=== PATIENT | male | born 1945 | race Caucasian/White ===

== ENCOUNTER 2018-02-28 06:59 | Inpatient (IN) ==
[2018-02-28] MEDS ORDERED: 0.9 % SODIUM CHLORIDE 1,000 ML IV ONE ×2 (07:18→09:17)
[2018-02-28 08:14] LABS: Basophils # (Auto) 0 K/mcL (0.0-0.3); Basophils % (Auto) 0.4 % (0.0-2.0); Eosinophils # (Auto) 0.1 K/mcL (0.0-0.7); Eosinophils % (Auto) 1.9 % (0.0-7.0); Granulocytes % (Auto) 57.4 % (38.0-78.0); Lymphocytes # (Auto) 2.2 K/mcL (1.5-4.8); Lymphocytes % (Auto) 31.8 % (15.5-49.0); Mean Cell Volume 94.6 fL (80.0-100.0); Mean Corpuscular HGB Conc 34.1 g/dL (31.0-36.0); Mean Corpuscular Hemoglobin 32.2 pg (26.0-34.0); Monocytes # (Auto) 0.6 K/mcL (0.1-0.9); Monocytes % (Auto) 8.5 % (1.0-12.0); Platelet Count 159 K/mcL (140-440); RBC 4.19 M/mcL (4.50-5.90); Red Cell Distribution Width 13.4 % (11.5-14.5)
[2018-02-28 08:31] LABS: ALT/SGPT 19 U/l (0-40); Albumin 3.8 gm/dL (3.2-5.2); Albumin/Globulin Ratio 1.8 (1.0-2.3); Alkaline Phosphatase 55 U/L (39-117); Blood Urea Nitrogen 26 mg/dl (8-23)
[2018-02-28] MEDS ORDERED: LACTATED RINGERS 1,000 ML IV SCH ×2 (08:45→10:21)
[2018-02-28] MEDS ORDERED: PANTOPRAZOLE 40 MG VIAL IV ONE (08:55)
[2018-02-28] MEDS ORDERED: 0.9 % SODIUM CHLORIDE 250 ML IV SCH ×4 (09:00→12:07)
--- NOTE | 2018-02-28 09:20 | Emergency Department Note ---
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 Reports one episode of epigastric pain about a month ago with brief syncope, this lead to a normal nuclear cardiac test. upon arrival pt gave a small brown BM, followed by 2-3 more BMs of maroon and now letty bloody stool. Onset (ago): hour(s) Severity: moderate Severity scale (1-10): 2 Treatments Prior to Arrival: none - Related Data Home Medications Medication Instructions Recorded Confirmed R Lipoic Acid 600 mg PO BID 12/28/14 02/28/18 coenzyme Q10 100 mg capsule 100 mg PO BID cap 12/28/14 02/28/18 oxygen-air delivery systems device See Dose Instructions .ROUTE 12/28/14 .MEDSUPPLY aspirin 81 mg tablet,delayed 81 mg PO QDAY 09/10/16 02/28/18 release cholecalciferol (vitamin D3) 5,000 15,000 unit PO QDAY tab 09/17/17 02/28/18 unit tablet Previous Rx's Medication Instructions Recorded carvedilol 12.5 mg tablet 12.5 mg PO BID #180 tab 09/17/17 dutasteride 0.5 mg capsule 0.5 mg PO QDAY #90 cap 09/17/17 quinapril 40 mg tablet 40 mg PO QDAY #90 tab 09/17/17 Allergies Allergy/AdvReac Type Severity Reaction Status Date / Time Iodinated Contrast- Oral and Allergy Unknown Hives Verified 02/28/18 07:06 IV Dye [Iodinated Contrast Media - IV Dye] Cats Allergy Unknown Congested Uncoded 02/04/18 14:27 Review of Systems All systems ED: reviewed and negative except as stated. Constitutional: Reports: as per HPI. Denies: fever, chills, weakness Cardiovascular: Reports: chest pain, syncope (as per HPI, neg nuc stress test 1 month ago), other (has been exercising with for last few weeks and doing well overall). Denies: orthopnea Gastrointestinal: Reports: as per HPI Past Medical History - Past Medical History Medical history: Reports: CHF, coronary artery disease, hyperlipidemia, obesity Psychiatric history: Reports: no psych history Surgical history ED: Reports: bariatric surgery, cholecystectomy, coronary bypass (CABG) Family history: Reports: non-contributory - Social History smoking status: Never smoker Alcohol use: Reports: None Drug use: Reports: none Social History Narrative: daily coffee drinker Physical Exam Limitations: no limitations General appearance: alert, in no apparent distress, obese Eye: Absent: scleral icterus Chest: Present: normal inspection Respiratory: Present: normal lung sounds bilaterally Cardiovascular: Present: regular rate, normal rhythm, systolic murmur Abdominal: Present: soft, hyperactive bowel sounds. Absent: distention, tenderness, guarding, rebound, rigidity, ascites, bruit Rectal: Present: deferred, heme (+) stool, bloody stool Neurological: Present: alert, oriented X3, CN II-XII intact, normal gait Psychiatric: Present: normal affect, anxious Course Course Narrative: upon arrival pt NAD then multiple bloody BMs call to Dr Prajapati who agrees to admit and see today will make NPO and begin Protonix possible scope today Vital Signs Temperature 97.3 F 02/28/18 07:00 Pulse Rate 85 02/28/18 07:00 Respiratory Rate 20 02/28/18 07:00 Blood Pressure 150/87 02/28/18 07:00 Pulse Oximetry (%) 95 02/28/18 07:00 Temperature 97.3 F 02/28/18 07:00 Pulse Rate 78 02/28/18 09:01 Respiratory Rate 15 02/28/18 09:01 Blood Pressure 137/81 02/28/18 09:01 Pulse Oximetry (%) 98 02/28/18 09:01 Medical Decision Making - MDM Narrative Medical decision making narrative: concern for marginal ulcer in view of bypass history significant amount of bleeding based on presentation - Medical Records Medical records reviewed: Yes I reviewed the patient's medical records. - Lab Data Lab results reviewed: Yes I reviewed the patient's lab results. Result diagrams: 02/28/18 07:32 02/28/18 07:32 Lab Results 02/28/18 02/28/18 Range/Units 07:32 07:32 WBC 6.8 (4.5-11.0) K/mcL RBC 4.19 L (4.50-5.90) M/mcL Hgb 13.5 (13.5-16.5) g/dL Hct 39.7 L (41.0-55.0) % POC Hct 37.0 L (41.0-55.0) % MCV 94.6 (80.0-100.0) fL MCH 32.2 (26.0-34.0) pg MCHC 34.1 (31.0-36.0) g/dL RDW 13.4 (11.5-14.5) % Plt Count 159 (140-440) K/mcL MPV 7.9 (7.4-10.4) fL Gran % 57.4 (38.0-78.0) % Lymph % (Auto) 31.8 (15.5-49.0) % Bullock % (Auto) 8.5 (1.0-12.0) % Eos % (Auto) 1.9 (0.0-7.0) % Baso % (Auto) 0.4 (0.0-2.0) % Gran # 3.9 (1.8-8.0) K/mcL Lymph # (Auto) 2.2 (1.5-4.8) K/mcL Bullock # (Auto) 0.6 (0.1-0.9) K/mcL Eos # (Auto) 0.1 (0.0-0.7) K/mcL Baso # (Auto) 0 (0.0-0.3) K/mcL POC Sodium 141 (133-145) mmol/L Sodium 138 (133-145) mmol/L POC Potassium 4.3 (3.3-5.1) mmol/L Potassium 4.5 (3.3-5.1) mmol/L POC Chloride 106 (96-108) mmol/L Chloride 106 (96-108) mmol/L Carbon Dioxide 22 (22-30) mmol/L POC Total CO2 23 (22-30) mmol/L Anion Gap 10.0 (8-16) POC BUN 27 H (8-23) mg/dl BUN 26 H (8-23) mg/dl Creatinine 0.7 (0.7-1.2) mg/dl POC Creatinine 0.7 (0.7-1.2) mg/dl GFR Calculation 95 Glucose 115 H (70-105) mg/dL POC Glucose 113 H (70-105) mg/dL Calcium 8.7 (8.6-10.4) mg/dl POC WB Ioniz Calcium 1.18 (1.16-1.32) mmol/L Total Bilirubin 0.5 (0.0-1.0) mg/dL AST 14 (0-37) U/l ALT 19 (0-40) U/l Alkaline Phosphatase 55 (39-117) U/L Total Protein 5.9 (5.9-8.4) gm/dL Albumin 3.8 (3.2-5.2) gm/dL Globulin 2.1 L (2.2-3.7) gm/dL Albumin/Globulin Ratio 1.8 (1.0-2.3) Disposition Pt seen by [employer] SPECIALIST/PA only: No Clinical Impression: Upper gastrointestinal bleed Disposition: Xfer As Inpt ([facility]) Condition: Serious Referrals: Karri Castillo MD [Primary Care Provider] -
[2018-02-28] MEDS ORDERED: PANTOPRAZOLE 80 MG in 0.9 % SODIUM CHLORIDE 100 ML IV SCH ×2 (09:30→20:00)
[2018-02-28] MEDS: 0.9 % SODIUM CHLORIDE 10 ML SYRINGE IV SCH ×3 (10:00→21:02)
[2018-02-28] MEDS ORDERED: ONDANSETRON 4 MG/2 ML VIAL IV PRN ×3 (10:03→12:07)
--- NOTE | 2018-02-28 10:15 | General Surg History&Physical ---
History of Present Illness Patient information: Note initiated : 02/28/18 at 10:12 am Service Date, if different from initiated Date: [] Patient: Narinder Denise a 72 y/o M admitted on 02/28/18 for vomiting bright red blood. Chief Complaint: [] HPI: Mr. Denise is a 72 year old M admitted with upper GI bleed. The patient had onset of nausea followed by emesis of dark blood Earlier this morning. He was seen in the emergency room where he had had 3 episodes of rectal bleeding. He had some diaphoresis. His initial hematocrit is 39. The patient is status post gastric bypass in 2013. He has had some intermittent epigastric pain which resolved spontaneously. He had severe pain 2 February , which was associated with weakness and diaphoresis. This prompted him to have a stress test which was negative. The symptoms resolved and did not recur until this morning. He has a brisk bleed and is admitted for urgent upper endoscopy and treatment. Review of Systems All systems PM: reviewed and no additional remarkable complaints except as stated Past History Past medical history: Chronic obstructive sleep apnea. Hypertension. BPH. Left carotid bruit Past surgical history: Gastric bypass 2013. Coronary artery bypass grafting, 4 vessels [place] 1999. Right shoulder arthroscopy. Cholecystectomy Past family history: Colon cancer. 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 Occasional alcohol use. History of cannibidiol use Medications and Allergies Home Medications Medication Instructions Recorded Confirmed Type R Lipoic Acid 600 mg PO BID 12/28/14 02/28/18 History coenzyme Q10 100 mg capsule 100 mg PO BID cap 12/28/14 02/28/18 History oxygen-air delivery systems device See Dose Instructions .ROUTE 12/28/14 History .MEDSUPPLY aspirin 81 mg tablet,delayed 81 mg PO QDAY 09/10/16 02/28/18 History release carvedilol 12.5 mg tablet 12.5 mg PO BID #180 tab 09/17/17 02/28/18 Rx cholecalciferol (vitamin D3) 5,000 15,000 unit PO QDAY tab 09/17/17 02/28/18 History unit tablet dutasteride 0.5 mg capsule 0.5 mg PO QDAY #90 cap 09/17/17 02/28/18 Rx quinapril 40 mg tablet 40 mg PO QDAY #90 tab 09/17/17 02/28/18 Rx Allergies Allergy/AdvReac Type Severity Reaction Status Date / Time Iodinated Contrast- Oral and Allergy Unknown Hives Verified 02/28/18 07:06 IV Dye [Iodinated Contrast Media - IV Dye] Cats Allergy Unknown Congested Uncoded 02/04/18 14:27 Exam Temp Pulse Resp BP Pulse Ox 97.3 F 82 18 137/85 98 02/28/18 07:00 02/28/18 09:18 02/28/18 09:18 02/28/18 09:18 02/28/18 09:18 - General physical appearance well developed, well nourished, no distress, other (Mallie overweight) - Eyes PERRL, normal ocular movement - ENT normal pinna, normal nares, normal mucosa, no hearing loss, no congestion - Head Head exam IM: Present: atraumatic, normocephalic - Neck no masses, no bruits, trachea midline, no lymphadectomy, no venous distension - Cardiovascular Cardiovascular exam IM: Present: normal rate and rhythm, RRR, +S1, +S2. Absent : JVD, tachycardia - Respiratory normal expansion, normal respiratory effort, clear to percussion, clear to auscultation - Abdomen Abdomen: Present: soft, non tender, bowel sounds Hernia: Present: none - Genitourinary Present: normal penis with no external lesions - Integumentary Present: no rash, no growths, no abnormal pigmentation - Neurologic Present: normal coordination, normal sensation - Musculoskeletal Present: normal gait, normal posture - Psychiatric Present: oriented to time, oriented to person, oriented to place, speech is normal, memory intact Assessment and Plan (1) Upper gastrointestinal bleed Type and cross for 4 units of blood. Start pantoprazole drip. Urgent upper endoscopy with intervention is needed Status: Acute (2) Sleep apnea Status: Chronic Comment: 1998 - Patient on CPAP (3) Hypertension, essential Resume home meds when appropriate Status: Chronic (4) Gastric bypass status for obesity Status: Chronic Comment: check various nutrient factors. (5) CAD (coronary artery disease) Negative stress test 2 weeks ago. We'll continue home meds Status: Chronic Comment: Post CABG
[2018-02-28] MEDS ORDERED: MIDAZOLAM 5 MG/5 ML VIAL IV ONE (11:00)
[2018-02-28] MEDS ORDERED: fentaNYL 100 MCG/2 ML VIAL IV ONE (11:00)
[2018-02-28] MEDS ORDERED: ONDANSETRON 4 MG/2 ML VIAL IV ONE (11:00)
[2018-02-28] MEDS ORDERED: PROPOFOL 200 MG/20 ML VIAL IV ONE (11:00)
[2018-02-28] MEDS ORDERED: EPINEPHrine 1 MG/ML AMPUL IJ ONE ×2 (11:17→11:22)
--- NOTE | 2018-02-28 11:33 | Brief Operative Note ---
Date of procedure: 02/28/18 Pre-op diagnosis: upper gastointestinal bleeding Post-op diagnosis: other (large marginal ulcer with large fresh clot and exposed vessel) Procedure: UPPER ENDOSCOPY WITH CONTROL OF HEMORRHAGE BY EPINEPHRINE INFILTRATION AND APPLICATION OF 6 RESOLUTION CLIPS Grafts/Implants: No Anesthesia: other (GENERAL) Findings: LARGE MARGINAL ULCER WITH FRESH CLOT AND EXPOSED VESSEL Complications: none Surgeon: Chelsey Prajapati Specimens Removed/Pathology: none sent Condition: stable Disposition: ICU
[2018-02-28] MEDS: SUCRALFATE 1 GM/10 ML ORAL.SUSP PO SCH ×2 (12:47→17:36)
[2018-02-28] MEDS ORDERED: 0.9 % SODIUM CHLORIDE 10 ML SYRINGE IV SCH (14:00)
[2018-02-28] MEDS: LACTATED RINGERS 1,000 ML IV SCH (15:45)
[2018-02-28] MEDS ORDERED: PANTOPRAZOLE 40 MG VIAL IV SCH (17:00)
[2018-02-28] MEDS: CARVEDILOL 12.5 MG TABLET PO SCH (17:36)
[2018-02-28 18:14] LABS: Basophils # (Auto) 0 K/mcL (0.0-0.3); Basophils % (Auto) 0.3 % (0.0-2.0); Eosinophils # (Auto) 0 K/mcL (0.0-0.7); Eosinophils % (Auto) 0 % (0.0-7.0); Lymphocytes # (Auto) 1.4 K/mcL (1.5-4.8); Lymphocytes % (Auto) 11.1 % (15.5-49.0); Mean Cell Volume 93.9 fL (80.0-100.0); Mean Corpuscular HGB Conc 34.1 g/dL (31.0-36.0); Mean Corpuscular Hemoglobin 32.1 pg (26.0-34.0); Monocytes # (Auto) 0.6 K/mcL (0.1-0.9); Monocytes % (Auto) 4.6 % (1.0-12.0); Platelet Count 154 K/mcL (140-440); RBC 3.93 M/mcL (4.50-5.90); Red Cell Distribution Width 13.4 % (11.5-14.5)
[2018-02-28] MEDS: PANTOPRAZOLE 80 MG in 0.9 % SODIUM CHLORIDE 100 ML IV SCH (22:08)
[2018-02-28] MEDS ORDERED: ACETAMINOPHEN 1,000 MG/100 ML BOTTLE IV PRN (23:59)
[2018-02-28] MEDS ORDERED: ALPRAZolam 0.5 MG TABLET PO PRN (23:59)
[2018-03-01] MEDS: SUCRALFATE 1 GM/10 ML ORAL.SUSP PO SCH ×4 (00:06→18:03)
[2018-03-01] MEDS: LACTATED RINGERS 1,000 ML IV SCH ×2 (02:36→11:48)
[2018-03-01] MEDS: 0.9 % SODIUM CHLORIDE 10 ML SYRINGE IV SCH ×4 (05:42→21:26)
[2018-03-01 06:38] LABS: Basophils # (Auto) 0 K/mcL (0.0-0.3); Basophils % (Auto) 0.3 % (0.0-2.0); Eosinophils # (Auto) 0.1 K/mcL (0.0-0.7); Eosinophils % (Auto) 0.5 % (0.0-7.0); Granulocytes % (Auto) 70.1 % (38.0-78.0); Lymphocytes # (Auto) 2.6 K/mcL (1.5-4.8); Lymphocytes % (Auto) 22.5 % (15.5-49.0); Mean Cell Volume 94.5 fL (80.0-100.0); Mean Corpuscular HGB Conc 34.1 g/dL (31.0-36.0); Mean Corpuscular Hemoglobin 32.2 pg (26.0-34.0); Monocytes # (Auto) 0.8 K/mcL (0.1-0.9); Monocytes % (Auto) 6.6 % (1.0-12.0); Platelet Count 115 K/mcL (140-440); RBC 3.11 M/mcL (4.50-5.90); Red Cell Distribution Width 13.6 % (11.5-14.5)
[2018-03-01] MEDS: PANTOPRAZOLE 80 MG in 0.9 % SODIUM CHLORIDE 100 ML IV SCH ×2 (06:54→21:00)
[2018-03-01 07:17] LABS: ALT/SGPT 14 U/l (0-40); Albumin 2.9 gm/dL (3.2-5.2); Albumin/Globulin Ratio 2.2 (1.0-2.3); Alkaline Phosphatase 41 U/L (39-117); Bilirubin,Direct < 0.2 mg/dL (0.0-0.3); Blood Urea Nitrogen 19 mg/dl (8-23); Gamma Glutamyl Transpeptidase 7 U/L (8-61)
[2018-03-01] MEDS: CARVEDILOL 12.5 MG TABLET PO SCH ×2 (08:42→18:03)
--- NOTE | 2018-03-01 09:31 | Operative Note ---
DATE OF OPERATION: 02/28/2018 PREOPERATIVE DIAGNOSIS: Upper gastrointestinal bleeding. POSTOPERATIVE DIAGNOSES: Large marginal ulcer with fresh clot and exposed vessel. PROCEDURE: Upper endoscopy with control of hemorrhage by epinephrine infiltration and application of 6 resolution clips. SURGEON: Chelsey Prajapati MD FINDINGS: Large marginal ulcer with fresh clot and exposed vessel. DESCRIPTION OF PROCEDURE: Under general anesthesia, the patient was turned to the left lateral decubitus position. A time-out procedure was carried out as per protocol. The endoscope introduced through the bite block into the retropharynx into the esophagus. The esophagus was normal down to the GE junction. There was a small amount of fresh blood in the small gastric pouch. At the gastrojejunal anastomosis there was a large ulcer with fresh clot. The ulcer bed was infiltrated circumferentially with epinephrine 1:100,000 directly into the margin of the ulcer. The clot did not enlarge. Next, 4 resolution clips were placed directly across the ulcer bed encompassing the gastric as well as the jejunum mucosa. This closed this area. The clot was then removed. There was an exposed vessel in the base of the residual of the ulcer that was exposed. This was controlled with epinephrine followed by 2 more resolution clips placed side by side. This totally covered the exposed ulcer bed. Another mg of epinephrine was then infused in 5 separate aliquots without difficulty. There was good blanching around the ulcer. The distal jejunal limb appeared to be unremarkable. There was no old blood in the distal limb. The patient tolerated the procedure well. The scope was removed. He was awakened and transferred back to the ICU in satisfactory condition. LCS:naveed Job ID: [id number] Doc ID: [id number] Chelsey Prajapati M.D.
--- NOTE | 2018-03-01 14:18 | General Surgery Progress Note ---
Subjective Patient reports: feels better, tolerating liquids well, flatus, bowel movement, afebrile Narrative: Note initiated : 03/01/18 at 2:18 pm Service Date, if different from initiated Date: [] Patient: Narinder Denise 72 y/o M admitted on 02/28/18 for Vomiting Bright Red Blood/Upper GI Bleed. Chief Complaint: [Patient is doing well. He has not had any rectal bleeding since last evening. His hemoglobin has remained stable. He denies any abdominal pain. He is tolerating liquid diet without difficulty. He does not have tachycardia or hypotension.] Objective Temp Pulse Resp BP Pulse Ox 98.6 F 70 16 124/70 99 03/01/18 12:01 03/01/18 12:01 03/01/18 12:01 03/01/18 12:01 03/01/18 12:01 - Additional Data Intake & Output - Last 24 hours: Intake & Output 02/27/18 02/28/18 03/01/18 03/02/18 05:59 05:59 05:59 05:59 Intake Total 4433 / 4433 1235 / 1235 Output Total 2026 / 2026 425 / 425 Balance 2406 / 2406 810 / 810 Weight 216 lb 3 oz 216 lb 3 oz - General physical appearance well developed, well nourished, no distress - Eyes PERRL, normal ocular movement - ENT normal pinna, normal nares, normal mucosa, no hearing loss, no congestion - Neck no masses, no bruits, trachea midline, no venous distension - Respiratory normal expansion, normal respiratory effort, clear to auscultation - Cardiovascular Cardiovascular exam: Present: normal rate and rhythm, RRR, +S1, +S2, systolic murmur (grade 2 systolic murmur). Absent: irregular rhythm, JVD, tachycardia - Abdomen soft, non tender, bowel sounds (abdomen is nondistended; he has good active bowel sounds; no tenderness noted) - Integumentary no rash, no growths, no abnormal pigmentation - Neurologic normal coordination, normal sensation - Musculoskeletal normal gait, normal posture - Psychiatric oriented to time, oriented to person, oriented to place, speech is normal, memory intact - Labs 03/01/18 03:40 03/01/18 03:40 Diabetes panel 03/01/18 Range/Units 03:40 Sodium 139 (133-145) mmol/L Potassium 4.0 (3.3-5.1) mmol/L Chloride 106 (96-108) mmol/L Carbon Dioxide 22 (22-30) mmol/L BUN 19 (8-23) mg/dl Creatinine 0.6 L (0.7-1.2) mg/dl Glucose 82 (70-105) mg/dL Calcium 7.8 L (8.6-10.4) mg/dl AST 11 (0-37) U/l ALT 14 (0-40) U/l Alkaline Phosphatase 41 (39-117) U/L Total Protein 4.2 L (5.9-8.4) gm/dL Albumin 2.9 L (3.2-5.2) gm/dL Triglycerides 94 (<150) mg/dl Calcium panel 03/01/18 Range/Units 03:40 Calcium 7.8 L (8.6-10.4) mg/dl Phosphorus 2.5 L (2.7-4.5) mg/dL Albumin 2.9 L (3.2-5.2) gm/dL Pituitary panel 03/01/18 Range/Units 03:40 Sodium 139 (133-145) mmol/L Potassium 4.0 (3.3-5.1) mmol/L Chloride 106 (96-108) mmol/L Carbon Dioxide 22 (22-30) mmol/L BUN 19 (8-23) mg/dl Creatinine 0.6 L (0.7-1.2) mg/dl Glucose 82 (70-105) mg/dL Calcium 7.8 L (8.6-10.4) mg/dl Adrenal panel 03/01/18 Range/Units 03:40 Sodium 139 (133-145) mmol/L Potassium 4.0 (3.3-5.1) mmol/L Chloride 106 (96-108) mmol/L Carbon Dioxide 22 (22-30) mmol/L BUN 19 (8-23) mg/dl Creatinine 0.6 L (0.7-1.2) mg/dl Glucose 82 (70-105) mg/dL Calcium 7.8 L (8.6-10.4) mg/dl Total Bilirubin 0.4 (0.0-1.0) mg/dL AST 11 (0-37) U/l ALT 14 (0-40) U/l Alkaline Phosphatase 41 (39-117) U/L Total Protein 4.2 L (5.9-8.4) gm/dL Albumin 2.9 L (3.2-5.2) gm/dL Assessment and Plan (1) Upper gastrointestinal bleed Status: Acute Assessment and plan: No evidence of ongoing bleeding; hemoglobin is stable. We'll transfer to regular floor and start soft diet. Switch to oral medications Current Visit: Yes (2) Sleep apnea Problem details: 1998 - Patient on CPAP Status: Chronic Current Visit: No (3) Hypertension, essential Status: Chronic Current Visit: No (4) Gastric bypass status for obesity Problem details: check various nutrient factors. Status: Chronic Current Visit: No (5) CAD (coronary artery disease) Problem details: Post CABG Status: Chronic Current Visit: No - Time Spent With Patient Total time spent is greater than 50% in coordination of care (as documented) at patient's floor/unit and/or counseling patient:
[2018-03-01] MEDS ORDERED: ONDANSETRON 4 MG/2 ML VIAL IV PRN (14:32)
[2018-03-01] MEDS ORDERED: ALPRAZolam 0.5 MG TABLET PO PRN (14:32)
[2018-03-01] MEDS ORDERED: ACETAMINOPHEN 1,000 MG/100 ML BOTTLE IV PRN (14:32)
[2018-03-01] MEDS ORDERED: HYDROcodone/APAP 5/325MG TABLET PO PRN (14:32)
[2018-03-01] MEDS: PANTOPRAZOLE 40 MG TABLET PO SCH (18:03)
[2018-03-01] MEDS ORDERED: 0.9 % SODIUM CHLORIDE 250 ML IV SCH (18:30)
[2018-03-02] MEDS: SUCRALFATE 1 GM/10 ML ORAL.SUSP PO SCH ×6 (00:26→23:09)
[2018-03-02] MEDS: 0.9 % SODIUM CHLORIDE 10 ML SYRINGE IV SCH ×4 (05:05→22:04)
[2018-03-02 05:11] LABS: Basophils # (Auto) 0 K/mcL (0.0-0.3); Basophils % (Auto) 0.5 % (0.0-2.0); Eosinophils # (Auto) 0.1 K/mcL (0.0-0.7); Eosinophils % (Auto) 1.3 % (0.0-7.0); Granulocytes % (Auto) 59.1 % (38.0-78.0); Lymphocytes # (Auto) 2.1 K/mcL (1.5-4.8); Lymphocytes % (Auto) 31.3 % (15.5-49.0); Mean Corpuscular Hemoglobin 31.6 pg (26.0-34.0); Monocytes # (Auto) 0.5 K/mcL (0.1-0.9); Monocytes % (Auto) 7.8 % (1.0-12.0); Platelet Count 97 K/mcL (140-440); Red Cell Distribution Width 13.3 % (11.5-14.5)
[2018-03-02] MEDS: PANTOPRAZOLE 80 MG in 0.9 % SODIUM CHLORIDE 100 ML IV SCH (05:25)
[2018-03-02 05:40] LABS: ALT/SGPT 12 U/l (0-40); Albumin 2.9 gm/dL (3.2-5.2); Albumin/Globulin Ratio 2.2 (1.0-2.3); Alkaline Phosphatase 43 U/L (39-117); Bilirubin,Direct < 0.2 mg/dL (0.0-0.3); Blood Urea Nitrogen 14 mg/dl (8-23); Gamma Glutamyl Transpeptidase 8 U/L (8-61); Uric Acid 5.3 mg/dL (2.5-8.0)
[2018-03-02] MEDS: PANTOPRAZOLE 40 MG TABLET PO SCH ×2 (07:51→17:11)
[2018-03-02] MEDS: LISINOPRIL 20 MG TABLET PO SCH (08:59)
[2018-03-02] MEDS: CARVEDILOL 12.5 MG TABLET PO SCH ×2 (08:59→17:41)
[2018-03-02] MEDS: DUTASTERIDE 0.5 MG CAPSULE PO SCH (09:00)
[2018-03-02] MEDS ORDERED: QUINAPRIL HCL 40 MG PO SCH (09:00)
[2018-03-02] MEDS ORDERED: MAGNESIUM SULFATE 32.48 MEQ in DEXTROSE 5% IN WATER 50 ML IV ONE (14:44)
--- NOTE | 2018-03-02 14:47 | General Surgery Progress Note ---
Subjective Patient reports: feels better, tolerating liquids well, flatus, bowel movement, afebrile Narrative: Note initiated : 03/02/18 at 2:45 pm Service Date, if different from initiated Date: [] Patient: Narinder Denise 72 y/o M admitted on 02/28/18 for Vomiting Bright Red Blood/Upper GI Bleed. Chief Complaint: [patient is doing well. He has had some dark bloody stools but his hemoglobin has actually increased to 11.5. The blood loss is extremely dark and is mixed with stool, suggesting that it is old and not fresh bleeding. This is supported by his increase in hemoglobin. He denies nausea or abdominal pain.] Objective Temp Pulse Resp BP Pulse Ox 98.6 F 74 18 114/54 97 03/02/18 12:00 03/02/18 12:00 03/02/18 12:00 03/02/18 12:00 03/02/18 12:00 - Additional Data Intake & Output - Last 24 hours: Intake & Output 02/28/18 03/01/18 03/02/18 03/03/18 05:59 05:59 05:59 05:59 Intake Total 4433 / 4433 2084 / 2084 280 / 280 Output Total 2026 / 2026 775 / 775 925 / 925 Balance 2406 / 2406 1309 / 1309 -645 / -645 Weight 216 lb 3 oz 216 lb 1.6 oz - General physical appearance well developed, well nourished, no distress - Eyes PERRL, normal ocular movement - ENT normal pinna, normal nares, normal mucosa, no hearing loss, no congestion - Neck no masses, no bruits, trachea midline, no venous distension - Respiratory normal expansion, normal respiratory effort, clear to auscultation - Cardiovascular Cardiovascular exam: Present: normal rate and rhythm, RRR, +S1, +S2, systolic murmur (grade 2 systolic murmur). Absent: JVD, tachycardia - Abdomen non tender, bowel sounds (present), surgical scars (none), masses (. Abdomen is soft and nondistended..... He has good active bowel sounds. There is no tenderness) - Integumentary no rash, no growths, no abnormal pigmentation - Neurologic normal coordination, normal sensation - Musculoskeletal normal gait, normal posture - Psychiatric oriented to time, oriented to person, oriented to place, speech is normal, memory intact - Labs 03/02/18 12:40 03/02/18 03:25 Diabetes panel 03/02/18 Range/Units 03:25 Sodium 141 (133-145) mmol/L Potassium 3.8 (3.3-5.1) mmol/L Chloride 107 (96-108) mmol/L Carbon Dioxide 24 (22-30) mmol/L BUN 14 (8-23) mg/dl Creatinine 0.7 (0.7-1.2) mg/dl Glucose 75 (70-105) mg/dL Calcium 8.0 L (8.6-10.4) mg/dl AST 10 (0-37) U/l ALT 12 (0-40) U/l Alkaline Phosphatase 43 (39-117) U/L Total Protein 4.2 L (5.9-8.4) gm/dL Albumin 2.9 L (3.2-5.2) gm/dL Triglycerides 81 (<150) mg/dl Calcium panel 03/02/18 Range/Units 03:25 Calcium 8.0 L (8.6-10.4) mg/dl Phosphorus 2.4 L (2.7-4.5) mg/dL Albumin 2.9 L (3.2-5.2) gm/dL Pituitary panel 03/02/18 Range/Units 03:25 Sodium 141 (133-145) mmol/L Potassium 3.8 (3.3-5.1) mmol/L Chloride 107 (96-108) mmol/L Carbon Dioxide 24 (22-30) mmol/L BUN 14 (8-23) mg/dl Creatinine 0.7 (0.7-1.2) mg/dl Glucose 75 (70-105) mg/dL Calcium 8.0 L (8.6-10.4) mg/dl Adrenal panel 03/02/18 Range/Units 03:25 Sodium 141 (133-145) mmol/L Potassium 3.8 (3.3-5.1) mmol/L Chloride 107 (96-108) mmol/L Carbon Dioxide 24 (22-30) mmol/L BUN 14 (8-23) mg/dl Creatinine 0.7 (0.7-1.2) mg/dl Glucose 75 (70-105) mg/dL Calcium 8.0 L (8.6-10.4) mg/dl Total Bilirubin 0.4 (0.0-1.0) mg/dL AST 10 (0-37) U/l ALT 12 (0-40) U/l Alkaline Phosphatase 43 (39-117) U/L Total Protein 4.2 L (5.9-8.4) gm/dL Albumin 2.9 L (3.2-5.2) gm/dL Assessment and Plan (1) Upper gastrointestinal bleed Status: Acute Assessment and plan: No evidence of ongoing bleeding; hemoglobin is stable. Current Visit: Yes (2) Sleep apnea Problem details: 1999 - Patient on CPAP Status: Chronic Current Visit: No (3) Hypertension, essential Status: Chronic Current Visit: No (4) Gastric bypass status for obesity Problem details: check various nutrient factors. Status: Chronic Current Visit: No (5) CAD (coronary artery disease) Problem details: Post CABG Status: Chronic Current Visit: No - Time Spent With Patient Total time spent is greater than 50% in coordination of care (as documented) at patient's floor/unit and/or counseling patient:
[2018-03-02] MEDS: MAGNESIUM SULFATE 2 GM/50 ML BAG IV SCH ×2 (15:06→16:02)
[2018-03-03] MEDS: SUCRALFATE 1 GM/10 ML ORAL.SUSP PO SCH ×4 (05:45→23:30)
[2018-03-03] MEDS: 0.9 % SODIUM CHLORIDE 10 ML SYRINGE IV SCH ×3 (05:46→21:12)
[2018-03-03 06:12] LABS: Basophils # (Auto) 0 K/mcL (0.0-0.3); Basophils % (Auto) 0.4 % (0.0-2.0); Eosinophils # (Auto) 0.1 K/mcL (0.0-0.7); Eosinophils % (Auto) 2.3 % (0.0-7.0); Granulocytes % (Auto) 53.6 % (38.0-78.0); Lymphocytes # (Auto) 1.8 K/mcL (1.5-4.8); Lymphocytes % (Auto) 35.1 % (15.5-49.0); Mean Cell Volume 94.9 fL (80.0-100.0); Mean Corpuscular HGB Conc 33.4 g/dL (31.0-36.0); Mean Corpuscular Hemoglobin 31.7 pg (26.0-34.0); Monocytes # (Auto) 0.4 K/mcL (0.1-0.9); Monocytes % (Auto) 8.6 % (1.0-12.0); Platelet Count 107 K/mcL (140-440); RBC 3.04 M/mcL (4.50-5.90); Red Cell Distribution Width 13.9 % (11.5-14.5)
[2018-03-03] MEDS ORDERED: POTASSIUM PHOSPHATE 40 MEQ in DEXTROSE 5% IN WATER 500 ML IV ONE (07:26)
[2018-03-03] MEDS: CARVEDILOL 12.5 MG TABLET PO SCH ×2 (08:13→17:00)
[2018-03-03] MEDS: DUTASTERIDE 0.5 MG CAPSULE PO SCH (08:14)
[2018-03-03] MEDS: LISINOPRIL 20 MG TABLET PO SCH (08:14)
[2018-03-03] MEDS: PANTOPRAZOLE 40 MG TABLET PO SCH ×2 (08:14→17:04)
--- NOTE | 2018-03-03 17:45 | General Surgery Progress Note ---
Subjective Patient reports: feels better, tolerating liquids well, flatus, bowel movement, blood in stool, afebrile Narrative: Note initiated : 03/03/18 at 5:43 pm Service Date, if different from initiated Date: [] Patient: Narinder Denise 72 y/o M admitted on 02/28/18 for Vomiting Bright Red Blood/Upper GI Bleed. Chief Complaint: [patient is stable, though he did have a bloody bowel movement earlier during the day. His morning hemoglobin was 28.9. He has no discomfort. Discussed with patient the need to proceed with repeat upper endoscopy and it will be done later today.] Objective Temp Pulse Resp BP Pulse Ox 98.7 F 62 16 146/72 98 03/03/18 16:00 03/03/18 16:00 03/03/18 16:00 03/03/18 16:00 03/03/18 16:00 - Additional Data Intake & Output - Last 24 hours: Intake & Output 03/01/18 03/02/18 03/03/18 03/04/18 05:59 05:59 05:59 05:59 Intake Total 4433 / 4433 2083 / 2083 1077 / 8741 283.8997 / 749.0909 Output Total 2026 / 2026 775 / 775 2725 / 2725 1974 / 1974 Balance 2406 / 2406 1309 / 1309 -1648 / -1648 -1225.9091 / -1225.9091 Weight 216 lb 3 oz 216 lb 1.6 oz 217 lb - General physical appearance well developed, well nourished, no distress - Eyes PERRL, normal ocular movement - ENT normal pinna, normal nares, normal mucosa, no hearing loss, no congestion - Neck no masses, no bruits, trachea midline, no lymphadectomy, no venous distension - Respiratory normal expansion, normal respiratory effort, clear to auscultation - Cardiovascular Cardiovascular exam: Present: normal rate and rhythm, +S2. Absent: JVD, tachycardia - Abdomen non tender, bowel sounds (present), surgical scars (none), masses (none) - Integumentary no rash, no growths, no abnormal pigmentation - Neurologic normal coordination, normal sensation - Musculoskeletal normal gait, normal posture - Psychiatric oriented to time, oriented to person, oriented to place, speech is normal, memory intact - Labs 03/03/18 04:54 03/02/18 03:25 Assessment and Plan (1) Upper gastrointestinal bleed Status: Acute Assessment and plan: Repeat rectal bleeding to be investigated by upper endoscopy Current Visit: Yes (2) Sleep apnea Problem details: 1998 - Patient on CPAP Status: Chronic Current Visit: No (3) Hypertension, essential Status: Chronic Current Visit: No (4) Gastric bypass status for obesity Problem details: check various nutrient factors. Status: Chronic Current Visit: No (5) CAD (coronary artery disease) Problem details: Post CABG Status: Chronic Current Visit: No - Time Spent With Patient Total time spent is greater than 50% in coordination of care (as documented) at patient's floor/unit and/or counseling patient:
[2018-03-03] MEDS ORDERED: GLYCOPYRROLATE 0.2 MG/ML VIAL IV ONE (18:15)
[2018-03-03] MEDS ORDERED: ONDANSETRON 4 MG/2 ML VIAL IV ONE (18:15)
[2018-03-03] MEDS ORDERED: PROPOFOL 200 MG/20 ML VIAL IV ONE (18:15)
[2018-03-03] MEDS ORDERED: LIDOCAINE HCL/PF 100 MG/5 ML SYRINGE IV ONE (18:15)
[2018-03-03] MEDS ORDERED: KETAMINE 100 MG/ML ML IV ONE (18:15)
[2018-03-03] MEDS ORDERED: MIDAZOLAM 2 MG/2 ML VIAL IV ONE (18:15)
--- NOTE | 2018-03-03 18:25 | Brief Operative Note ---
Date of procedure: 03/03/18 Pre-op diagnosis: upper gi bleeding Post-op diagnosis: other (marginal ulcer without bleeding) Procedure: upper endoscopy Grafts/Implants: No Anesthesia: MAC Findings: healing marginal ulcer without bleeding; no blood noted in distal jejunal limb Complications: none Surgeon: Chelsey Prajapati Condition: stable Disposition: same day
[2018-03-03] MEDS ORDERED: HYDROcodone/APAP 5/325MG TABLET PO PRN (18:47)
[2018-03-03] MEDS ORDERED: ACETAMINOPHEN 1,000 MG/100 ML BOTTLE IV PRN (18:47)
[2018-03-03] MEDS ORDERED: ALPRAZolam 0.5 MG TABLET PO PRN (18:47)
[2018-03-03] MEDS ORDERED: ONDANSETRON 4 MG/2 ML VIAL IV PRN (18:47)
[2018-03-03] MEDS ORDERED: PANTOPRAZOLE 40 MG TABLET PO ONE (19:01)
[2018-03-03] MEDS ORDERED: PANTOPRAZOLE 40 MG TABLET ONE (19:11)
[2018-03-04] MEDS: SUCRALFATE 1 GM/10 ML ORAL.SUSP PO SCH ×2 (05:55→12:58)
[2018-03-04] MEDS: 0.9 % SODIUM CHLORIDE 10 ML SYRINGE IV SCH ×2 (05:55→12:58)
[2018-03-04 06:27] LABS: Basophils # (Auto) 0 K/mcL (0.0-0.3); Basophils % (Auto) 0.3 % (0.0-2.0); Eosinophils # (Auto) 0.1 K/mcL (0.0-0.7); Eosinophils % (Auto) 2.7 % (0.0-7.0); Lymphocytes # (Auto) 1.8 K/mcL (1.5-4.8); Lymphocytes % (Auto) 34.8 % (15.5-49.0); Mean Cell Volume 94.3 fL (80.0-100.0); Mean Corpuscular Hemoglobin 32.1 pg (26.0-34.0); Monocytes # (Auto) 0.4 K/mcL (0.1-0.9); Monocytes % (Auto) 8.2 % (1.0-12.0); Platelet Count 121 K/mcL (140-440); RBC 3.08 M/mcL (4.50-5.90); Red Cell Distribution Width 13.6 % (11.5-14.5)
[2018-03-04] MEDS ORDERED: PANTOPRAZOLE 40 MG TABLET PO SCH (07:30)
[2018-03-04] MEDS ORDERED: CARVEDILOL 12.5 MG TABLET PO SCH (08:00)
[2018-03-04] MEDS ORDERED: LISINOPRIL 20 MG TABLET PO SCH (09:00)
[2018-03-04] MEDS ORDERED: DUTASTERIDE 0.5 MG CAPSULE PO SCH (09:00)
--- NOTE | 2018-03-04 13:01 | Discharge Summary ---
Providers - Providers Patient information: Note initiated : 03/04/18 at 12:59 pm Service Date, if different from initiated Date: [] Patient: Narinder Deinse 72 y/o M admitted on 02/28/18 for Vomiting Bright Red Blood/Upper GI Bleed. Chief Complaint: [] Date of admission: 02/28/18 Discharge date: 03/04/18 Attending physician: Chelsey Prajapati Hospitalization Hospital course: 72-year-old male who presented on February with a history of hematemesis followed by multiple episodes of hematochezia. He also had some weakness and diaphoresis. Patient was felt to have a major upper GI bleeding. He was admitted and started on pantoprazole. His initial hemoglobin was 12.6 but dropped to 9.8. He had more bleeding and underwent urgent upper endoscopy, where he was found to have a marginal ulcer at the gastrojejunal anastomosis with fresh clot and an exposed the vessel. The bleeding was controlled by serial epinephrine injections followed by application of 6 resolution clips which totally close the ulcer and the vessel. The patient received 2 units of packed red cells. Since that time, he has been stable, but he started having more bloody stools and had fluctuations in hemoglobin level. Because of this, repeat endoscopy was done on February which showed no evidence of bleeding with the resolution clips still adequately position with evidence of healing. Patient has been advanced to a soft diet and is now stable for discharge Discharge diagnosis: marginal ulcer with hemorrhage Secondary discharge diagnosis: Blood loss anemia Chronic obstructive sleep apnea. Hypertension Reason for admission: upper gastrointestinal bleeding Procedures: Upper endoscopy with control of hemorrhage by epinephrine infiltration and application of resolution clips 6. February 20 Upper endoscopy Complications: None Exam Temp Pulse Resp BP Pulse Ox 98.0 F 66 20 119/76 96 03/04/18 12:00 03/04/18 12:00 03/04/18 12:00 03/04/18 12:00 03/04/18 12:00 - General physical appearance well developed, well nourished, no distress - Eyes PERRL, normal ocular movement - ENT normal pinna, normal nares, normal mucosa, no hearing loss, no congestion - Head Head exam IM: Present: atraumatic, normocephalic - Neck no masses, no bruits, trachea midline, no lymphadectomy, no venous distension - Cardiovascular Cardiovascular exam IM: Present: normal rate and rhythm - Respiratory normal expansion, normal respiratory effort, clear to percussion, clear to auscultation - Abdomen Abdomen: Present: soft, non tender, bowel sounds. Absent: distended Hernia: Present: none - Genitourinary Present: normal penis with no external lesions - Integumentary Present: no rash, no growths, no abnormal pigmentation - Neurologic Present: normal coordination, normal sensation - Musculoskeletal Present: normal gait, normal posture - Psychiatric Present: oriented to time, oriented to person, oriented to place, speech is normal, memory intact Discharge Plan - Patient/Caregiver Discharge Instructions Activity: increase activity as tolerated Diet: Regular Diet Additional Instructions: Continue pantoprazole twice a day for 6 weeks, then once daily indefinitely. Sucralfate 4 times daily 4 weeks, then discontinue Prescriptions: Pantoprazole [Protonix] 40 mg PO BIDAC #60 tab Sucralfate [Carafate] 1 gm PO Q6 #120 tab - Follow up Plan Follow up with: Karri Castillo MD [Primary Care Provider] - Disposition: Home, Self-Care Prognosis: Good Rehab Potential: Good I certify that the patient requires SNF services.: No Overall status at discharge: patient is back to baseline Pending Studies Resuscitation Status Full Code Diet GI Soft/Transitional Start ThuMar 03 1848 Carvedilol (Coreg) 12.5 mg PO BIDCC [facility] Last Admin: 03/04/18 08:27 Dose: 12.5 mg Dutasteride (Avodart) 0.5 mg PO QDAY [facility] Last Admin: 03/04/18 08:27 Dose: 0.5 mg Lisinopril (Zestril) 40 mg PO DAILY [facility] Last Admin: 03/04/18 08:27 Dose: 40 mg Pantoprazole Sodium (Protonix) 40 mg PO BIDAC [facility] Last Admin: 03/04/18 07:12 Dose: 40 mg Sodium Chloride (Saline Flush) 10 ml IV Q8 [facility] Last Admin: 03/04/18 12:58 Dose: 10 ml Admin: 03/04/18 05:55 Dose: 10 ml Admin: 03/03/18 21:12 Dose: 10 ml Sucralfate (Carafate) 1 gm PO Q6 [facility] Last Admin: 03/04/18 12:58 Dose: 1 gm Admin: 03/04/18 05:55 Dose: 1 gm Admin: 03/03/18 23:30 Dose: 1 gm Shift Summary 03/04/18 04:55 Shift Summary by Joy Pavon&Sakina4. VSS, uses CPAP at night. Up independently; uses call light appropriately. EGD was performed yesterday and the findings were healing marginal ulcer without bleeding. Hgb increased to 11.2 yesterday afternoon. No BM this shift. Plan is for patient to discharge home. Will update at bedside. Initialized on 03/04/18 04:55 - END OF NOTE
--- NOTE | 2018-03-11 12:49 | Operative Note ---
DATE OF OPERATION: 03/03/2018 PREOPERATIVE DIAGNOSIS: Upper GI bleeding. POSTOPERATIVE DIAGNOSIS: Marginal ulcers without bleeding. PROCEDURE: Upper endoscopy. SURGEON: hCelsey Prajapati M.D. FINDINGS: Healing marginal ulcer with intact Resolution clips and no evidence of bleeding; no evidence of blood in the distal jejunum limb. INDICATION: The patient with prior history of major upper GI bleeding due to a large marginal ulcer and exposed vessel with continued alteration in hemoglobin and bloody stools. DESCRIPTION: Under general anesthesia, the patient turned to the left lateral decubitus position. A timeout procedure was carried out as per protocol. Bite block was placed and the upper endoscope was maneuvered through the bite block into the retropharynx and into the esophagus. The esophagus was unremarkable. The small gastric pouch was unremarkable. There was no bleeding in the pouch. The marginal ulcer along the lateral aspect of the gastrojejunal anastomosis was identified. It showed evidence of healing with a smooth healing margin with the six Resolution clips that had been previously placed still intact. Scope was maneuvered past the anastomosis into the distal jejunal limb as far as the scope would reach. There was no blood in this loop of jejunum. The scope was gradually withdrawn. A good view of the pouch revealed no abnormality. The pouch was too small for retroflex view; however, direct view did not reveal any evidence of bleeding, nor was there any significant inflammation as had been previously seen. The GE junction was unremarkable. Scope was removed. The patient tolerated the procedure well. He was awakened and transferred back to the ICU for continued monitoring. LCS:jannette Job ID: [id number] Doc ID: [id number] Chelsey Prajapati M.D.
== END 2018-03-04 14:12 | disposition home or self-care (01) | DRG 379 ==
LOC: ED 06:59 → ICU 09:35 → MEDSUR 03-02 17:00
PROVIDERS: ADMIT Family Medicine Adult Medicine; ATTEND Family Medicine Adult Medicine

== ENCOUNTER 2018-06-02 07:30 | Inpatient (IN) ==
[2018-05-24 14:02] LABS: Appearance,Urine CLEAR; Bilirubin,Urine NEG (NEG); Color,Urine YELLOW; Glucose,Urine (UA) NEGATIVE (NEG); Leukocyte Esterase,Urine NEG /uL (NEG); Protein,Urine NEG (NEG); Specific Gravity,Urine 1.023 (1.000-1.035); Urine Blood NEG mg/dL (<0.03); Urobilinogen,Urine NEG (NEG)
[2018-05-24 15:16] LABS: Basophils # (Auto) 0 K/mcL (0.0-0.3); Basophils % (Auto) 0.4 % (0.0-2.0); Eosinophils # (Auto) 0.1 K/mcL (0.0-0.7); Eosinophils % (Auto) 1.4 % (0.0-7.0); Granulocytes % (Auto) 66.4 % (38.0-78.0); Lymphocytes # (Auto) 1.5 K/mcL (1.5-4.8); Lymphocytes % (Auto) 23.8 % (15.5-49.0); Mean Corpuscular Hemoglobin 30.7 pg (26.0-34.0); Monocytes # (Auto) 0.5 K/mcL (0.1-0.9); Platelet Count 201 K/mcL (140-440); RBC 4.61 M/mcL (4.50-5.90); Red Cell Distribution Width 12.4 % (11.5-14.5)
[2018-05-24 15:58] LABS: Blood Urea Nitrogen 21 mg/dl (8-23)
[~2018-06-02 07:30] MED LIST: CELECOXIB 200 MG CAPSULE PO SCH; PREGABALIN 75 MG CAPSULE PO SCH; ceFAZolin 1 GM VIAL IV SCH; oxyCODONE 10 MG TAB.ER.12H PO SCH
[2018-06-02] MEDS ORDERED: ROPIVACAINE HCL/PF 20 ML VIAL IJ ONE (11:00)
[2018-06-02] MEDS ORDERED: fentaNYL 100 MCG/2 ML VIAL IV ONE (11:00)
[2018-06-02] MEDS ORDERED: MIDAZOLAM 2 MG/2 ML VIAL IV ONE (11:00)
[2018-06-02] MEDS ORDERED: TRANEXAMIC ACID 1,000 MG/10 ML VIAL IV ONE ×2 (11:00→13:08)
[2018-06-02] MEDS ORDERED: ESMOLOL 100 MG/10 ML VIAL IV ONE (11:00)
[2018-06-02] MEDS ORDERED: KETAMINE 100 MG/ML ML IV ONE (11:00)
[2018-06-02] MEDS ORDERED: ONDANSETRON 4 MG/2 ML VIAL IV ONE (11:00)
[2018-06-02] MEDS ORDERED: PROPOFOL 200 MG/20 ML VIAL IV ONE (11:00)
[2018-06-02] MEDS ORDERED: LIDOCAINE HCL/PF 100 MG/5 ML SYRINGE IV ONE (11:00)
[2018-06-02] MEDS ORDERED: GLYCOPYRROLATE 0.2 MG/ML VIAL IV ONE (11:00)
[2018-06-02] MEDS ORDERED: PROMETHAZINE 25 MG/ML VIAL IV PRN (12:54)
[2018-06-02] MEDS ORDERED: MEPERIDINE 25 MG/ML SYRINGE IV PRN (12:54)
[2018-06-02] MEDS ORDERED: IPRATROPIUM/ALBUTEROL 3 ML AMPUL.NEB NEB PRN (12:54)
[2018-06-02] MEDS ORDERED: ONDANSETRON 4 MG/2 ML VIAL IV PRN ×2 (12:54→13:08)
[2018-06-02] MEDS ORDERED: METOPROLOL TARTRATE 5 MG/5 ML VIAL IV PRN (12:54)
[2018-06-02] MEDS ORDERED: HYDROmorphone 2 MG/ML VIAL IV PRN ×2 (12:54→13:08)
[2018-06-02] MEDS ORDERED: ACETAMINOPHEN 1,000 MG/100 ML BOTTLE IV ONE (12:54)
[2018-06-02] MEDS ORDERED: LACTATED RINGERS 1,000 ML IV SCH (13:00)
[2018-06-02] MEDS ORDERED: MAGNESIUM HYDROXIDE 30 ML ORAL.SUSP PO PRN (13:08)
[2018-06-02] MEDS ORDERED: FLEETS ADULT ENEMA PR PRN (13:08)
[2018-06-02] MEDS ORDERED: KETOROLAC 15 MG/ML VIAL IV PRN (13:08)
[2018-06-02] MEDS ORDERED: POLYETHYLENE GLYCOL 3350 17 GM PACKET PO PRN (13:08)
[2018-06-02] MEDS ORDERED: BISACODYL 10 MG SUPP.RECT PR PRN (13:08)
[2018-06-02] MEDS ORDERED: BENZOCAINE/MENTHOL 1 LOZENGE PO PRN (13:08)
[2018-06-02] MEDS ORDERED: ceFAZolin 1 GM VIAL IV SCH (13:15)
--- NOTE | 2018-06-02 13:33 | Brief Operative Note ---
Date of procedure: 06/02/18 Pre-op diagnosis: Left shoulder AVN with retained hardware, deep Post-op diagnosis: same Procedure: 1)Hardware removal deep, Left prox humerus plate 2)Left reverse total shoulder arthroplasty Grafts/Implants: Yes (Tornier 4B stem, +9 insert, 25 baseplate, 36 inf offset glenosphere) Anesthesia: GLMA Findings: severe AVN humeral head Complications: none Surgeon: Nabor Ely Medical Assistant Secretary: Curtis Parker Estimated blood loss (cc): 350 Specimens Removed/Pathology: other (Plate and 11 screws) Condition: stable Disposition: PACU
[2018-06-02] MEDS: fentaNYL 100 MCG/2 ML VIAL IV PRN ×2 (14:00→14:02)
--- NOTE | 2018-06-02 14:15 | XRay Report ---
CLINICAL INFORMATION: Post-Op Total Shoulder COMPARISON: None. FINDINGS: Total shoulder prostheses anatomically aligned. No osseous abnormality. Soft tissues swelling seen as expected IMPRESSION: Negative Interpreted and Authenticated by: Ronnie Zamora 06/02/18
[2018-06-02] MEDS ORDERED: METHOCARBAMOL 1,000 MG/10 ML VIAL ONE (14:24)
[2018-06-02] MEDS ORDERED: METHOCARBAMOL 1,000 MG/10 ML VIAL IV ONE (14:25)
--- NOTE | 2018-06-02 15:20 | Operative Note ---
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 PROCEDURE PERFORMED: 1. Hardware removal deep of the left proximal humerus plate and screws. 2. Left reverse total shoulder arthroplasty placing a Tornier size 4B humeral stem with a +9 humeral tray insert with a 36 inferior offset glenosphere on a 25 baseplate. SURGEON: Nabor Ely M.D. FOOD AND BEVERAGE ANALYST: Cheo Parker PA-C. ANESTHESIA: General. DRAINS: None. SPECIMENS: Plate and screws which were removed. BLOOD LOSS: 500 mL. COMPLICATIONS: None. POSTOPERATIVE CONDITION: Stable. INDICATIONS FOR SURGERY: This is a 72-year-old male who over a year ago had a severe proximal humerus fracture. This was treated with open treatment and internal fixation. He had initially done reasonably well; however, over the past year has developed increasing pain. X-rays taken showed humeral head collapse consistent with avascular necrosis. FINDINGS AT SURGERY: Showed avascular necrosis of the humeral head. Post implantation showed a stable shoulder. PROCEDURE IN DETAIL: The patient had been seen preoperatively and informed consent had been obtained after discussion of risks and benefits of surgery. Risks including, but not limited to, bleeding, possibly requiring transfusion; infection, possibly requiring implant removal and prolonged IV antibiotics; injury to nerves, blood vessels, other surrounding structures; anesthetic risks; incomplete or no resolution of symptoms; stiffness; weakness; dislocation; fracture; possibility of needing further revision surgery. He understood and wished to proceed. Correct operative site was marked, and the patient was taken to the operating room. General anesthesia was induced. He was carefully positioned in the beach chair position and pressure points carefully padded. Left shoulder and upper extremity were then carefully prepped and draped in normal sterile fashion, and a time-out was performed verifying patient name, operative site, and plan. Ioban was used to cover all skin surfaces. His previous deltopectoral incision was used with a scalpel through skin and subcutaneous tissue. We started bluntly dissecting, trying to identify the deltopectoral interval and ended up lacerating the cephalic vein which started bleeding profusely, so we did have to tie this off. We continued dissecting through scar tissue down below the deltoid and then started developing the subdeltoid space which was severely scarred. We then also dissected between the subscapularis and the conjoined tendon to place a blue handle retractor. We then used a Bovie to expose the proximal humeral plate. The screws were each removed and then the plate was levered off the bone. We then made a lesser tuberosity osteotomy with a large curved osteotome and detached the subscapularis and a traction stitch placed. The humeral head was dislocated out anteriorly and at this point was readily apparent to how severe the avascular necrosis was. We went ahead and used the cutting jig for a 30-degree retroverted cut and then started hand broaching. We used a sounder up to a size 6. However, the broaching stopped at a 4. We placed a cut protector and then subluxed this posteriorly and then exposed the glenoid, removing labrum and carefully releasing capsule staying right on bone. Once we had adequate exposure, a guide pin was placed and then we started reaming until we had reamed down through the cartilage onto the bone. We then drilled our central peg and then opened our baseplate. We also depth gauged, I believe it was a 45 mm central screw, so this was advanced after irrigating Irrisept in the joint. We then placed the baseplate until the central screw was tight and the baseplate compressed. We then drilled and placed our peripheral screws. A locking screw was placed superior and inferior, nonlocking anterior and posterior. We then trialed and felt that we needed the inferior offset to get below the bone of the glenoid inferiorly so we went ahead and made sure we had bone cleaned around circumferentially and then placed a glenosphere 36 inferior offset. We then trialed with the +3 insert. We felt this still could be tensioned better, so we went up to a +6 which was much better tension and barely reducible. We went ahead then and removed the trial from the humerus. We irrigated the canal with Irrisept, after a minute pulse lavaged with saline, and then impacted the construct. The shoulder was reduced with good tension. Range of motion revealed good stability. Drill holes were made in the bicipital groove and then #2 FiberWire [id number] was used to repair the subscapularis lesser tuberosity osteotomy. We also closed rotator interval with [id number] #2 FiberWire. We then did another Irrisept irrigation, after a minute pulse lavage, and then running #1 Vicryl was used to close the deltopectoral interval. Final Irrisept irrigation was done and then final pulse lavage, and 2-0 Monocryl for subcutaneous and marcela for skin. Xeroform and sterile dressing were applied. Arm was placed in an abductor immobilizer. The patient was awakened, extubated, and transferred to recovery in stable condition. BLOSSOM:jannette Job ID: [id number] Doc ID: [id number] Nabor Ely MD
[2018-06-02] MEDS: 0.9 % SODIUM CHLORIDE 10 ML SYRINGE IV SCH ×2 (15:33→20:44)
[2018-06-02] MEDS: 0.9 % SODIUM CHLORIDE 1,000 ML IV SCH (16:00)
[2018-06-02] MEDS: PANTOPRAZOLE 40 MG TABLET PO SCH (17:22)
[2018-06-02] MEDS: CARVEDILOL 12.5 MG TABLET PO SCH (17:27)
[2018-06-02] MEDS: HYDROcodone/APAP 10/325MG TABLET PO PRN ×2 (18:22→22:45)
[2018-06-02] MEDS: ceFAZolin 1 GM VIAL IV SCH (18:23)
[2018-06-02] MEDS: DOCUSATE SODIUM 100 MG CAPSULE PO SCH (20:44)
[2018-06-02] MEDS ORDERED: NON FORMULARY MEDICATION 1 DOSE MISCELL (Ubidecarenone [Coenzyme Q10] 100 MG) PO SCH (21:00)
[2018-06-02] MEDS ORDERED: SENNOSIDES 1 TABLET PO SCH (21:00)
[2018-06-03] MEDS: 0.9 % SODIUM CHLORIDE 1,000 ML IV SCH ×2 (02:20→09:30)
[2018-06-03] MEDS: HYDROcodone/APAP 10/325MG TABLET PO PRN ×2 (02:38→07:33)
[2018-06-03] MEDS: ceFAZolin 1 GM VIAL IV SCH (02:40)
[2018-06-03] MEDS: 0.9 % SODIUM CHLORIDE 10 ML SYRINGE IV SCH (06:20)
[2018-06-03] MEDS: CARVEDILOL 12.5 MG TABLET PO SCH (07:34)
[2018-06-03] MEDS: PANTOPRAZOLE 40 MG TABLET PO SCH (07:34)
[2018-06-03] MEDS: DOCUSATE SODIUM 100 MG CAPSULE PO SCH (07:34)
--- NOTE | 2018-06-03 08:09 | Discharge Summary ---
Providers - Providers Patient information: Note initiated : 06/03/18 at 8:06 am Service Date, if different from initiated Date: [] Patient: Narinder Denise 72 y/o M admitted on 06/02/18 for Left Reverse Total Shoulder Arthroplasty with . Chief Complaint: [] Discharge date: 06/03/18 Hospitalization Hospital course: Pt was admitted for a R TSA. Pt underwent the procedure on the day of admission. Pt spent one night on the floor prior to discharge for IV pain meds, IV abx, and PT. Pt will attend out-pt PT and f/u at [facility] in 2 weeks. 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 Abduction pillow. Continue to wear sling until seen by physician. Codman Pendulum : These exercises use momentum produced by your body to move your shoulder joint. Bend your knees and shift your weight to your front leg, then back, allowing your arm to swing in the same directions. Using the same technique, alternately shift your weight between your right and left legs, allowing your arm to swing from side to side. These exercises are also performed in counterclockwise and clockwise circular motions. Typically these exercises are performed several times per day, for a set number repetitions or minutes, such as 20 times in a row or 5 minutes at a time. Dressing Care: May shower in 2 days Patient Education: Shoulder Arthroplasty (DC) Additional Instructions: Discharge Instructions: Do the exercises at home that physical therapy gave you throughout the day. No weight bearing with left arm/hand. Keep your arm immobilizer in place except for showering and exercises. You are scheduled to start physical therapy at [facility] ([phone]) on Take your prescription, photo ID, insurance cards, and current medication list with you to your first physical therapy appointment. 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 You have the Aquacel Ag dressing, leave in place for 7 days then remove. If dressing becomes soiled (turns black), remove and use gauze 4x4 dressing and silvasorb ointment and change daily. Keep incision clean and dry. You can get the Silvasorb gel and 4X4 dressings at [facility], if you need them. You may start showering on post op day #2. To avoid constipation while taking any narcotic pain medication, take an over the counter stool softener/laxative. Use ice packs as directed, on for 20 minutes at a time throughout the day. This and elevation will help with pain and swelling. Call your physician for fevers above 100.5 or pain not controlled by medication. Your prescriptions are with your discharge information. Some medications were electronically transmitted to your pharmacy of choice. Take Aspirin twice daily, for 30 days, as prescribed to prevent blood clots ( see medication list). - Follow Up Plan Follow Up Appointments: Nabor Ely MD [Physician] - 06/17/18 9:20 am Disposition: Home, Self-Care Prognosis: Good Rehab Potential: Good Overall status at discharge: patient is progressing back to baseline - Orders For Discharge Prescriptions: Docusate Sodium [Colace] 100 mg PO BID #30 cap oxyCODONE/APAP [Percocet 10-325Mg] 1 - 2 tab PO Q4-6HP PRN #60 tab PRN Reason: Pain Sennosides [Senokot] 2 tab PO HS #30 tab Pending Studies Resuscitation Status Full Code Diet Regular Diet Start ThuJun 02 1310 Hydrocodone Bitart/Acetaminophen (Jeffers 10/325mg) 0 tab PO Q4HP PRN PRN Reason: PAIN LEVEL 3-6 Last Admin: 06/03/18 07:33 Dose: 2 tab Admin: 06/03/18 02:38 Dose: 2 tab Admin: 06/02/18 22:45 Dose: 1 tab Admin: 06/02/18 18:22 Dose: 1 tab Aspirin (Aspirin) 81 mg PO DAILY [facility] Last Admin: 06/03/18 07:34 Dose: 81 mg [facility] Last Admin: 06/03/18 07:34 Dose: 12.5 mg Admin: 06/02/18 17:27 Dose: 12.5 mg Docusate Sodium (Colace) 100 mg PO BID [facility] Last Admin: 06/03/18 07:34 Dose: 100 mg Admin: 06/02/18 20:44 Dose: 100 mg Dutasteride (Avodart) 0.5 mg PO QDAY [facility] Last Admin: 06/03/18 07:34 Dose: 0.5 mg Hydromorphone HCl (Dilaudid) 0 mg IV Q2HP PRN PRN Reason: PAIN LEVEL > 6 Last Admin: 06/03/18 06:20 Dose: 0.5 mg Sodium Chloride (Sodium Chloride 0.9%) 1,000 mls @ 100 mls/hr IV .Q10H [facility] Last Admin: 06/03/18 02:20 Dose: Infusion: 06/03/18 02:19 Dose: 0 mls/hr Admin: 06/02/18 16:00 Dose: 100 mls/hr Lisinopril (Zestril) 20 mg PO DAILY [facility] Last Admin: 06/03/18 07:34 Dose: 20 mg Pantoprazole Sodium (Protonix) 40 mg PO BIDAC [facility] Last Admin: 06/03/18 07:34 Dose: 40 mg Admin: 06/02/18 17:22 Dose: 40 mg Senna (Senokot) 2 tab PO HS [facility] Last Admin: 06/02/18 20:44 Dose: 2 tab Sodium Chloride (Saline Flush) 10 ml IV Q8 [facility] Last Admin: 06/03/18 06:20 Dose: 10 ml Admin: 06/02/18 20:44 Dose: Not Given Admin: 06/02/18 15:33 Dose: Not Given Vitamin D (Vitamin D3) 15,000 unit PO DAILY [facility] Last Admin: 06/03/18 07:34 Dose: 15,000 unit Shift Summary 06/03/18 05:02 Shift Summary by Joy Pavon&Ox4. VSS on RA. Up with SBA to bedside commode. Surgical dressing to left shoulder is CDI; shoulder immobilizer in place. Able to achieve pain goal with 2 tablets Jeffers 10/325mg; last medicated at 0238. Patient has hx of urinary retention; last PVR was 252ml. Will update at bedside. Initialized on 06/03/18 05:02 - END OF NOTE
[2018-06-03] MEDS ORDERED: VITAMIN D3 5,000 UNIT CAPSULE PO SCH (09:00)
[2018-06-03] MEDS ORDERED: DUTASTERIDE 0.5 MG CAPSULE PO SCH (09:00)
[2018-06-03] MEDS ORDERED: LISINOPRIL 20 MG TABLET PO SCH (09:00)
[2018-06-03] MEDS ORDERED: ASPIRIN 81 MG TAB.CHEW PO SCH (09:00)
[2018-06-03] MEDS ORDERED: oxyCODONE/APAP 10/325MG TABLET PO PRN (09:09)
== END 2018-06-03 10:45 | disposition home or self-care (01) | DRG 483 ==
LOC: MEDSUR 07:57
PROVIDERS: ADMIT Orthopaedic Surgery; ATTEND Orthopaedic Surgery
CPT/HCPCS: 97161